=== PATIENT | male | born 1965 | race African-American/Black ===

== ENCOUNTER 2017-03-14 11:39 | Emergency (ER) | payer BC ==
[~2017-03-14] VITALS: Ht 182.9 cm; Wt 110.0 kg
[2017-03-14 11:44] VITALS: BP 158/99; PULSE 88; RESP 18; TEMP 99.1; O2SAT 94
[2017-03-14 11:52] VITALS: BP 158/99; PULSE 89; RESP 18; TEMP 99.1; O2SAT 95
[2017-03-14 11:58] VITALS: O2SAT 95
[2017-03-14] MEDS ORDERED: SODIUM CHLORIDE 0.9% FLUSH 10 ML FLUSH IVF PRN (12:00)
[2017-03-14 12:26] LABS: AUTOMATED NEUTROPHIL # 4.3 TH/MM3 (1.8-7.7); BASOPHIL % 0.7 % (0.0-2.0); EOSINOPHIL # 0.1 TH/MM3 (0-0.4); EOSINOPHIL % 0.8 % (0.0-4.0); HEMATOCRIT 41.5 % (39.0-51.0); HEMOGLOBIN 13.8 GM/DL (13.0-17.0); LYMPH % 21.2 % (9.0-44.0); LYMPHOCYTE # 1.4 TH/MM3 (1.0-4.8); MEAN CELL VOLUME 74.6 FL (80.0-100.0); MEAN CORPUSCULAR HEMOGLOBIN 24.8 PG (27.0-34.0); MEAN CORPUSCULAR HGB CONC 33.2 % (32.0-36.0); MEAN PLATELET VOLUME 7.5 FL (7.0-11.0); MONO % 9.5 % (0.0-8.0); MONOCYTE # 0.6 TH/MM3 (0-0.9); NEUT % 67.8 % (16.0-70.0); PLATELET COUNT 235 TH/MM3 (150-450); RED BLOOD COUNT 5.56 MIL/MM3 (4.50-5.90); RED CELL DISTRIBUTION WIDTH 17.3 % (11.6-17.2); WHITE BLOOD COUNT 6.4 TH/MM3 (4.0-11.0)
[2017-03-14] MEDS ORDERED: chlordiazePOXIDE 25 MG CAP PO STA (12:31)
[2017-03-14 12:33] LABS: PROTHROMBIN TIME - PATIENT 10.3 SEC (9.8-11.6)
[2017-03-14] MEDS ORDERED: SODIUM CHLOR 0.9% 1000 ML INJ 1,000 ML IV ONE (12:45)
[2017-03-14] MEDS ORDERED: ONDANSETRON HCL 4 MG/2 ML VIAL IV ONE (12:45)
[2017-03-14 12:46] LABS: ALBUMIN 3.8 GM/DL (3.4-5.0); AST (GOT) 50 U/L (15-37); BICARBONATE 26.4 MEQ/L (21.0-32.0); BLOOD UREA NITROGEN 8 MG/DL (7-18); CALCIUM 8.5 MG/DL (8.5-10.1); CHLORIDE 101 MEQ/L (98-107); CREATININE 1.05 MG/DL (0.60-1.30); GLOMERULAR FILTRATION RATE 91 ML/MIN (>89); GLUCOSE,RANDOM 117 MG/DL (74-106); MAGNESIUM 1.9 MG/DL (1.5-2.5); SODIUM (NA) 139 MEQ/L (136-145)
[2017-03-14 12:48] LABS: ALT (GPT) 42 U/L (12-78)
--- NOTE | 2017-03-14 12:49 | RADRPT ---
EXAM DATE/TIME: 03/14/2017 12:20 [place] COMPARISON: No previous studies available for comparison. INDICATIONS : Chest pains mid-sternal to left chest wall, prior cardiac stents. MEDICAL HISTORY : Myocardial infarction. SURGICAL HISTORY : Coronary artery stent. ENCOUNTER: Initial ACUITY: 1 day PAIN SCORE: 9/10 LOCATION: Left chest FINDINGS: A single view of the chest demonstrates the lungs to be symmetrically aerated without evidence of mas s, infiltrate or effusion. The cardiomediastinal contours are unremarkable. Osseous structures are intact. CONCLUSION: Normal examination for a patient of this age. Blake Longoria MD on March 14, 2017 at 12:46 Board Certified Radiologist. This report was verified electronically.
[2017-03-14 12:52] LABS: ALKALINE PHOSPHATASE 100 U/L (45-117); TOTAL BILIRUBIN ADULT 0.5 MG/DL (0.2-1.0); TOTAL PROTEIN 8.8 GM/DL (6.4-8.2); TROPONIN I 0.02 NG/ML (0.02-0.05)
[2017-03-14] MEDS ORDERED: RANI150T PO (13:04)
--- NOTE | 2017-03-14 13:05 | PD ---
HPI Chief Complaint: Chest Pain Time Seen by Provider: 12:21 Travel History International Travel<30 days: No Contact w/Intl Traveler<30days: No Traveled to known affect area: No History of Present Illness HPI Is a 51-year-old man who presents to the emergency department complaining of some chest pain and left arm numbness. He is a history of ID and was worried about similar problems. 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 He also has a history of alcoholism. He says he drinks every day. He's been throwing up a lot. He gets stomach pain and chest pain when he throws up. Last drank about midnight last night. He endorses sad feelings and passive wish feelings. Not actively suicidal. Also complains of difficulty urinating, and no bowel movement for the past several days. History Past Medical History Narrative Medical CAD, history of ID, stent Required blindness Alcoholism Hypertension Sickle cell trait Tetanus Vaccination: < 5 Years Influenza Vaccination: No Social History Alcohol Use: Yes (DAILY 1/2 BOTTLE LIQUOR) Tobacco Use: No Allergies-Medications (Allergen,Severity, Reaction): Coded Allergies: lorazepam (Verified Allergy, Severe, Sedation, 03/14/17) LOSS OF CONSCIOUSNESS lisinopril (Verified Allergy, Intermediate, Edema, 03/14/17) LIP SWELLING Review of Systems Except as stated in HPI: all other systems reviewed are Neg Physical Exam Narrative GENERAL: 51-year-old man, nontoxic, no acute distress. SKIN: Focused skin assessment warm/dry. HEAD: Atraumatic. Normocephalic. EYES: Pupils equal and round. No scleral icterus. No injection or drainage. ENT: No nasal bleeding or discharge. Mucous membranes pink and moist. NECK: Trachea midline. No JVD. CARDIOVASCULAR: Regular rate and rhythm. No murmur appreciated. RESPIRATORY: No accessory muscle use. Clear to auscultation. Breath sounds equal bilaterally. GASTROINTESTINAL: Abdomen soft, non-tender, nondistended. Hepatic and splenic margins not palpable. MUSCULOSKELETAL: No obvious deformities. No clubbing. No cyanosis. No edema. NEUROLOGICAL: Awake and alert. No obvious cranial nerve deficits. Motor grossly within normal limits. Normal speech. PSYCHIATRIC: Tearful at times. Sad. No active SI. Data Data Last Documented VS Vital Signs Date Time Temp Pulse Resp B/P (MAP) Pulse Ox O2 Delivery O2 Flow Rate FiO2 03/14/17 11:58 95 Room Air 03/14/17 11:58 03/14/17 11:52 99.1 89 18 Orders Orders Electrocardiogram (03/14/17 11:52) Complete Blood Count With Diff (03/14/17 11:52) Comprehensive Metabolic Panel (03/14/17 11:52) Magnesium (Mg) (03/14/17 11:52) Prothrombin Time / Inr (Pt) (03/14/17 11:52) Act Partial Throm Time (Ptt) (03/14/17 11:52) Troponin I (03/14/17 11:52) Chest, Single Ap (03/14/17 11:52) Ecg Monitoring (03/14/17 11:52) Iv Access Insert/Monitor (03/14/17 11:52) Oximetry (03/14/17 11:52) Oxygen Administration (03/14/17 11:52) Sodium Chloride 0.9% Flush (Ns Flush) (03/14/17 12:00) Chlordiazepoxide (Librium) (03/14/17 12:31) Ondansetron Inj (Zofran Inj) (03/14/17 12:45) Sodium Chlor 0.9% 1000 Ml Inj (Ns 1000 M (03/14/17 12:45) Labs Laboratory Tests Test 03/14/17 12:00 White Blood Count 6.4 TH/MM3 Red Blood Count 5.56 MIL/MM3 Hemoglobin 13.8 GM/DL Hematocrit 41.5 % Mean Corpuscular Volume 74.6 FL Mean Corpuscular Hemoglobin 24.8 PG Mean Corpuscular Hemoglobin Concent 33.2 % Red Cell Distribution Width 17.3 % Platelet Count 235 TH/MM3 Mean Platelet Volume 7.5 FL Neutrophils (%) (Auto) 67.8 % Lymphocytes (%) (Auto) 21.2 % Monocytes (%) (Auto) 9.5 % Eosinophils (%) (Auto) 0.8 % Basophils (%) (Auto) 0.7 % Neutrophils # (Auto) 4.3 TH/MM3 Lymphocytes # (Auto) 1.4 TH/MM3 Monocytes # (Auto) 0.6 TH/MM3 Eosinophils # (Auto) 0.1 TH/MM3 Basophils # (Auto) 0.0 TH/MM3 CBC Comment DIFF FINAL Differential Comment Prothrombin Time 10.3 SEC Prothromb Time International Ratio 1.0 RATIO Activated Partial Thromboplast Time 26.4 SEC Blood Urea Nitrogen 8 MG/DL Creatinine 1.05 MG/DL Random Glucose 117 MG/DL Total Protein 8.8 GM/DL Albumin 3.8 GM/DL Calcium Level 8.5 MG/DL Magnesium Level 1.9 MG/DL Alkaline Phosphatase 100 U/L Aspartate Amino Transf (AST/SGOT) 50 U/L Alanine Aminotransferase (ALT/SGPT) 42 U/L Total Bilirubin 0.5 MG/DL Sodium Level 139 MEQ/L Potassium Level 3.8 MEQ/L Chloride Level 101 MEQ/L Carbon Dioxide Level 26.4 MEQ/L Anion Gap 12 MEQ/L Estimat Glomerular Filtration Rate 91 ML/MIN Troponin I 0.02 NG/ML [facility] Medical Decision Making Medical Screen Exam Complete: Yes Emergency Medical Condition: Yes Interpretation(s) LABS: CBC unremarkable. CMP unremarkable. Troponin negative. Coags unremarkable. Review of EKG: Normal sinus rhythm at a rate of 86, normal axis, normal intervals, no acute ischemia. Chest x-ray: Normal examination for patient of this age. Differential Diagnosis ACS, GERD or gastritis, esophagitis, depression, alcoholism, substance induced mood disorder, other Narrative Course Medical decision making 51-year-old man presents emergency Department with chest pain, as well as feeling sad, and multiple other somatic complaints. Patient gets one for age, 2 points for history of CAD for heart score. History is only slightly suggestive of ACS. Initial workups negative. Recommend outpatient follow-up for alcoholism treatment. Return for any worsening symptoms. Diagnosis Primary Impression: Chest pain Additional Impression: Alcoholism Referrals: [facility] day Additional Instructions: Take ranitidine as prescribed as needed for reflux. Follow-up with Eron Denson for assistance with alcoholism. Return to the emergency department worsening chest pain, trouble breathing, or any other new or worsening symptoms. Med/Other Pt SpecificInfo: No Change to Meds Scripts Ranitidine (Ranitidine) 150 Mg Tab 150 MG PO BID for Heartburn Management, #40 TAB 0 Refills Prov: Negro Arizmendi MD 03/14/17 Disposition: 01 DISCHARGE HOME Condition: Stable Negro Arizmendi MD Mar 14, 2017 13:05
[2017-03-14] MEDS ORDERED: ATEN100T PO (14:20)
--- NOTE | 2017-03-16 00:11 | EKG ---
Date Performed: 03/14/2017 Time Performed: 11:47:26 PTAGE: 51 years EKG: Sinus rhythm NORMAL ECG PREVIOUS TRACING : 03/14/2017 11.29 DOCTOR: Heriberto Hardin Interpretating Date/Time 03/16/2017 00:09:26
== END 2017-03-14 14:52 | disposition home or self-care (01) ==
LOC: NEPE 11:39
DX: R07.9 Chest pain, unspecified (principal); F10.20 Alcohol dependence, uncomplicated; I25.10 Atherosclerotic heart disease of native coronary artery without angina pectoris; I10 Essential (primary) hypertension; D57.3 Sickle-cell trait; R20.0 Anesthesia of skin
CPT/HCPCS: 71045; 80053; 83735; 84484; 85025; 85610; 85730; 93005; 96361; 96374; 99285; J2405; J7030